=== PATIENT | female | born 1980 | race Caucasian/White ===

== ENCOUNTER 2016-10-10 10:38 | Outpatient (CLI) | payer OTHER ==
[~2016-10-10 10:38] MED LIST: BACTRIM DS1 TAB PO; CITALOPRAM HYDR20 MG PO; CLINDAMYCIN HC300 MG PO; DOCUSATE SODIU250 MG PO; HUMALOG100 MG/ML SC; LANTUS SOL100 UNITS/ SC; MORPHINE SULFAT30 M4 PO; NEURONTIN300 MG PO; SENNA-LAX8.6 MG PO
--- NOTE | 2016-10-10 13:28 | DIAGNOSTIC IMAGING REPORT ---
PROCEDURE: MR LUMBAR SPINE W/WO CONTRAST INDICATION: OTHER INTERVERTEBRAL DISC DEGENERATION TECHNIQUE: T1, T2 and STIR sagittal images. T1 and T2 axial images. Following 15 mL of intravenous gadolinium (ProHance), FAT-SAT T1 sagittal and axial images were obtained. COMPARISON: CT lumbar spine 09/27/2013. FINDINGS: Partially visualized thoracolumbar spine fusion with pedicle screws at L1 and L2, spanning a stable 45% T12 chronic compression fracture. There is normal alignment with mild spurring present. Desiccation and bulging of the L5- S1 disc. Schmorl's nodes at L1, L2 and L3. Conus medularis obscured by magnetic susceptibility artifacts. Paraspinal soft tissues are normal. L1-2: Normal appearance. L2-3: Normal appearance. L3-4: Normal appearance. L4-5: Small disc bulge and mild facet arthropathy. No foraminal or spinal stenosis. L5-S1: Large central/left posterior disc herniation, unchanged, and mild facet arthropathy. There is mild narrowing of the O left lateral recess and bilateral foraminal stenosis, improved from the prior CT scan. There is no spinal stenosis. IMPRESSION: 1. Partially visualized throughout the lumbar spine surgical fusion with stable 45% old T12 compression fracture 2. Mild degenerative changes 3. Large L5-S1 central/left posterior disc herniation with improved mild bilateral foraminal stenosis
== END 2016-10-10 23:00 | disposition home or self-care (01) ==
LOC: MRI SRH 10:38
DX: M51.27 Other intervertebral disc displacement, lumbosacral region (principal); M47.817 Spondylosis without myelopathy or radiculopathy, lumbosacral region; Z98.1 Arthrodesis status